=== PATIENT | female | born 1990 | race Caucasian/White ===

== ENCOUNTER 2016-06-04 19:21 | Emergency (ER) | payer MEDICAID ==
[~2016-06-04] VITALS: Ht 167.6 cm; Wt 113.6 kg
[~2016-06-04 19:21] MED LIST: AMOXICILLIN 50500 MG PO; BIRTH CONTROL PILLS; CEFTIN500 MG PO; CLEOCIN HCL300 MG PO; FERROUS SU325 MG/TAB PO; LORTAB 5/500 501 TAB PO; METHADOSE40 MG PO; MOTRIN 600600 MG/TAB PO; NAPROSYN500 MG PO; NO HOME MEDICATIONS; NORCO 325 MG-51 TAB PO; NORCO 325 MG-7.1 TAB PO; ORTHO TRI-CYCLE1 TAB PO; PERCOCET 325 MG1 TA2 PO; PHENERGAN 25 TA25 MG PO; PRENATAL MVI; PRENATAL VITAMI1 TA5 PO; PRENATAL1 TA3 PO; PROTONIX 40MG T40 MG PO; ROXICODONE 55 MG/TAB PO; TYLENOL 325MG325 MG PO; ZITHROMAX Z PA250 MG PO; ZOFRAN 4MG T4 MG/TAB PO; [UNRECOGNIZED DRUG - REMARK]
[2016-06-04 19:27] VITALS: BP 116/73; TEMP 98.6
[2016-06-04 21:45] VITALS: PULSE 86
== END 2016-06-04 21:48 | disposition home or self-care (01) ==
LOC: COL.ER 19:21
DX: M25.561 Pain in right knee (principal); R22.41 Localized swelling, mass and lump, right lower limb; Z32.01 Encounter for pregnancy test, result positive; W50.1XXA Accidental kick by another person, initial encounter; W19.XXXA Unspecified fall, initial encounter
CPT/HCPCS: J1170; L1830

== ENCOUNTER 2016-09-18 14:38 | Inpatient (IN) | payer MEDICAID ==
[~2016-09-18] VITALS: Ht 165.1 cm; Wt 107.7 kg
[2016-09-18] VITALS (18 sets, daily range): BP systolic 13–1379; BP diastolic 70–773; PULSE 63–78; TEMP 98.2–98.8
[2016-09-18] MEDS ORDERED: PRENATAL 19 CH1 EACH PO (16:12)
[2016-09-18 16:18] LABS: BASO % 0.5 % (0.0-2.0); EOS # 0.1 (0.0-0.7); EOS % 1.7 % (0-4.0); GRAN # 4.9 (1.4-6.5); GRAN % 73.7 % (42.2-75.2); LYMPH # 1.1 (1.2-3.4); LYMPH % 15.8 % (20.0-51.0); MEAN CELL VOLUME 86 fl (80.0-100.0); MEAN CORPUSCULAR HGB CONC 34 g/dl (33.0-37.0); MEAN PLATELET VOLUME 14.3 fl (7.4-10.4); MONO # 0.5 (0.1-0.6); MONO % 7.8 % (1.7-9.3); PLATELET COUNT 123 K/mm3 (130-400); RED BLOOD COUNT 3.85 M/mm3 (4.10-5.30); WHITE BLOOD COUNT 6.7 K/mm3 (4.8-10.8)
[2016-09-18 16:26] LABS: HEMATOCRIT 32.9 % (37.0-47.0); HEMOGLOBIN 11.1 g/dl (12.5-16.0); MEAN CORPUSCULAR HEMOGLOBIN 29 pg (27.0-31.0)
[2016-09-18 16:52] LABS: AMPHETAMINE URINE NEGATIVE; BARBITURATES URINE NEGATIVE; BENZODIAZEPINES URINE POSITIVE; BUPRENORPHINE URINE POSITIVE; METHADONE URINE NEGATIVE; OPIATES URINE NEGATIVE; OXYCODONE URINE NEGATIVE; PHENCYCLIDINE URINE NEGATIVE; PROPOXYPHENE URINE NEGATIVE; THC CANNABINOIDS URINE NEGATIVE
[2016-09-19 02:00] VITALS: BP 122/67; PULSE 68; TEMP 98
[2016-09-19] MEDS ORDERED: IBU600 MG PO (03:53)
[2016-09-19] MEDS ORDERED: PERCOCET 325 MG1 TA3 PO (03:54)
[2016-09-19 07:15] LABS: BASO % 0.3 % (0.0-2.0); EOS # 0.2 (0.0-0.7); EOS % 2.2 % (0-4.0); GRAN # 5.3 (1.4-6.5); GRAN % 72.7 % (42.2-75.2); LYMPH % 14.3 % (20.0-51.0); MEAN CELL VOLUME 87 fl (80.0-100.0); MEAN CORPUSCULAR HGB CONC 33 g/dl (33.0-37.0); MEAN PLATELET VOLUME 13.7 fl (7.4-10.4); MONO # 0.7 (0.1-0.6); MONO % 10.2 % (1.7-9.3); PLATELET COUNT 93 K/mm3 (130-400); REDCELL DISTRIBUTION WIDTH-CV 13.2 % (11.5-14.5); WHITE BLOOD COUNT 7.3 K/mm3 (4.8-10.8)
[2016-09-19 07:18] LABS: HEMATOCRIT 29.7 % (37.0-47.0); HEMOGLOBIN 9.7 g/dl (12.5-16.0); MEAN CORPUSCULAR HEMOGLOBIN 29 pg (27.0-31.0)
[2016-09-19 07:53] VITALS: BP 150/86; PULSE 74; TEMP 98.1
[2016-09-19 15:35] VITALS: BP 129/86; PULSE 62; TEMP 98.2
[2016-09-19 22:30] VITALS: BP 120/73; PULSE 66; TEMP 98.4
[2016-09-20 07:30] VITALS: BP 130/76; PULSE 68; TEMP 98
[2016-09-20 16:48] VITALS: BP 138/82; PULSE 66; TEMP 98
[2016-09-20 20:15] VITALS: BP 144/69; PULSE 54; TEMP 98.4
[2016-09-21 09:45] VITALS: BP 124/79; PULSE 68; TEMP 98.5
== END 2016-09-21 11:45 | disposition home or self-care (01) | DRG 766 ==
LOC: OB 14:38
PROVIDERS: Obstetrics & Gynecology
PROC: 10D00Z1 Extraction of Products of Conception, Low, Open Approach (ICD-10-PCS; principal; 2016-09-18)
DX: O34.211 Maternal care for low transverse scar from previous cesarean delivery (principal); N85.8 Other specified noninflammatory disorders of uterus; O99.333 Smoking (tobacco) complicating pregnancy, third trimester; F17.210 Nicotine dependence, cigarettes, uncomplicated; Z3A.39 39 weeks gestation of pregnancy; Z37.0 Single live birth
CPT/HCPCS: J0690; J1885; J2250; J2270; J2370; J2405; J2590; J7120

== ENCOUNTER 2016-10-12 08:50 | Emergency (ER) | payer MEDICAID ==
[~2016-10-12] VITALS: Ht 167.6 cm; Wt 94.1 kg
[~2016-10-12 08:50] MED LIST changes: +IBU600 MG PO; +PERCOCET 325 MG1 TA3 PO; +PRENATAL 19 CH1 EACH PO
[2016-10-12 08:53] VITALS: BP 150/93; TEMP 99.1
[2016-10-12] MEDS ORDERED: NORCO 325 MG-51 TAB PO (09:14)
[2016-10-12] MEDS ORDERED: CLEOCIN HC150 MG/CAP PO (09:14)
[2016-10-12 09:35] VITALS: PULSE 84
== END 2016-10-12 09:36 | disposition home or self-care (01) ==
LOC: COL.ER 08:50
DX: K02.9 Dental caries, unspecified (principal); K04.7 Periapical abscess without sinus; R68.84 Jaw pain

== ENCOUNTER 2017-05-04 12:36 | Emergency (ER) | payer MEDICAID ==
[~2017-05-04] VITALS: Ht 167.6 cm; Wt 91.4 kg
[~2017-05-04 12:36] MED LIST changes: +CLEOCIN HC150 MG/CAP PO
[2017-05-04] MEDS ORDERED: XANAX .25M0.25 MG/TA PO (12:47)
[2017-05-04] MEDS ORDERED: LAMICTAL 25MG T25 MG PO (12:47)
[2017-05-04 15:05] VITALS: BP 93/69; PULSE 130; TEMP 97.9
== END 2017-05-04 15:06 | disposition left against medical advice (07) ==
LOC: COL.ER 12:36
DX: R10.31 Right lower quadrant pain (principal); F17.210 Nicotine dependence, cigarettes, uncomplicated; Z90.49 Acquired absence of other specified parts of digestive tract; Z98.890 Other specified postprocedural states; Z98.51 Tubal ligation status

== ENCOUNTER 2017-05-05 06:28 | Inpatient (IN) | payer MEDICAID ==
[~2017-05-05] VITALS: Ht 167.6 cm; Wt 88.1 kg
[~2017-05-05 06:28] MED LIST changes: +LAMICTAL 25MG T25 MG PO; +XANAX .25M0.25 MG/TA PO
[2017-05-05 07:32] LABS: COLLECTION METHOD CLEAN CATCH
[2017-05-05 07:41] LABS: MUCOUS Present /lpf; PH 5 (5-8); URINE APPEARANCE Cloudy; URINE BACTERIA Rare /hpf; URINE BILIRUBIN Negative (NEGATIVE); URINE BLOOD 2+ (NEGATIVE); URINE COLOR Yellow; URINE GLUCOSE Negative (NEGATIVE); URINE KETONE Negative (NEGATIVE); URINE LEUKOCYTE ESTERASE 2+ (NEGATIVE); URINE NITRATE Negative (NEGATIVE); URINE PROTEIN(semi-quant) 2+ (NEGATIVE); URINE RBC 20-50 /hpf
[2017-05-05 08:18] LABS: MEAN CELL VOLUME 84 fl (80.0-100.0); MEAN CORPUSCULAR HGB CONC 33 g/dl (33.0-37.0); MEAN PLATELET VOLUME 13.2 fl (7.4-10.4); PLATELET COUNT 113 K/mm3 (130-400); RED BLOOD COUNT 3.47 M/mm3 (4.10-5.30); REDCELL DISTRIBUTION WIDTH-CV 14.2 % (11.5-14.5)
[2017-05-05 08:22] LABS: HEMATOCRIT 29.3 % (37.0-47.0); HEMOGLOBIN 9.6 g/dl (12.5-16.0); MEAN CORPUSCULAR HEMOGLOBIN 28 pg (27.0-31.0)
[2017-05-05 08:34] LABS: ALBUMIN 2.9 gm/dL (3.5-5.0); BILIRUBIN,TOTAL 1.7 mg/dL (0.0-1.0); CALCIUM 7.9 mg/dL (8.4-10.2); POTASSIUM 3.6 mmol/L (3.4-5.0); TOTAL PROTEIN 6.5 gm/dL (6.4-8.2)
[2017-05-05 08:44] LABS: CREATININE, serum 4.79 mg/dL (0.52-1.25)
[2017-05-05 10:06] LABS: BAND 17 % (0-10); LYMPHOCYTE 4 % (20.0-51.0); METAMYELOCYTE 1 % (0-0); NEUTROPHILS 71 % (42.0-75.2)
[2017-05-05 10:07] LABS: DOHLE BODIES PRESENT; PLATELET ESTIMATE DECREASED (NORMAL)
[2017-05-05 10:10] LABS: BURR CELLS 1+
[2017-05-05 11:20] VITALS: BP 93/50; PULSE 110; TEMP 97.6
[2017-05-05 16:34] VITALS: BP 91/55; PULSE 81; TEMP 97.2
[2017-05-05 18:06] LABS: FRACTIONAL EXCRETION OF NA+ 1.7 %
[2017-05-05 19:38] VITALS: BP 109/60; PULSE 114; TEMP 98.5
[2017-05-05 23:14] VITALS: BP 91/46; PULSE 121; TEMP 98.9
[2017-05-06 04:17] VITALS: BP 102/49; PULSE 114; TEMP 98.6
[2017-05-06 07:13] LABS: HEMATOCRIT 25.7 % (37.0-47.0); HEMOGLOBIN 8.4 g/dl (12.5-16.0); MEAN CELL VOLUME 86 fl (80.0-100.0); MEAN CORPUSCULAR HEMOGLOBIN 28 pg (27.0-31.0); MEAN CORPUSCULAR HGB CONC 33 g/dl (33.0-37.0); MEAN PLATELET VOLUME 13.2 fl (7.4-10.4); PLATELET COUNT 103 K/mm3 (130-400); REDCELL DISTRIBUTION WIDTH-CV 14.6 % (11.5-14.5)
[2017-05-06 07:14] LABS: ALBUMIN 2.3 gm/dL (3.5-5.0); BILIRUBIN,TOTAL 1.3 mg/dL (0.0-1.0); CALCIUM 7.5 mg/dL (8.4-10.2); CREATININE, serum 2.96 mg/dL (0.52-1.25); POTASSIUM 3.7 mmol/L (3.4-5.0); TOTAL PROTEIN 5.5 gm/dL (6.4-8.2)
[2017-05-06 08:00] VITALS: BP 98/58; PULSE 104; TEMP 98.5
[2017-05-06 09:25] LABS: BAND 15 % (0-10); EOSINOPHIL 1 % (0-4); LYMPHOCYTE 9 % (20.0-51.0); NEUTROPHILS 73 % (42.0-75.2); PLATELET ESTIMATE DECREASED (NORMAL)
[2017-05-06 09:26] LABS: HYPOCHROMIA 1+
[2017-05-06 09:27] LABS: BURR CELLS 1+
[2017-05-06 10:45] VITALS: BP 101/55; PULSE 99; TEMP 97.7
[2017-05-06 14:33] LABS: IRON,SERUM 17 ug/dL (35-150)
[2017-05-06 14:42] LABS: TOTAL IRON BINDING CAPACITY 260 ug/dL (265-497)
[2017-05-06 15:07] LABS: FERRITIN 169 ng/mL (6-137)
[2017-05-06 15:51] VITALS: BP 110/66; PULSE 105; TEMP 98
[2017-05-06 20:13] VITALS: BP 125/67; PULSE 111; TEMP 98.5
[2017-05-07 00:02] VITALS: BP 133/70; PULSE 108; TEMP 98.6
[2017-05-07 00:09] LABS: FOLATE (FOLIC ACID) 8.3 ng/mL (7.0-31.4)
[2017-05-07 03:37] VITALS: BP 117/59; PULSE 117; TEMP 98.9
[2017-05-07 06:29] LABS: HEMATOCRIT 27.1 % (37.0-47.0); HEMOGLOBIN 8.8 g/dl (12.5-16.0); MEAN CELL VOLUME 87 fl (80.0-100.0); MEAN CORPUSCULAR HEMOGLOBIN 28 pg (27.0-31.0); MEAN CORPUSCULAR HGB CONC 33 g/dl (33.0-37.0); MEAN PLATELET VOLUME 12.6 fl (7.4-10.4); PLATELET COUNT 103 K/mm3 (130-400); RED BLOOD COUNT 3.13 M/mm3 (4.10-5.30)
[2017-05-07 06:58] LABS: ALBUMIN 2.3 gm/dL (3.5-5.0); BILIRUBIN,TOTAL 1.2 mg/dL (0.0-1.0); CALCIUM 8.4 mg/dL (8.4-10.2); CREATININE, serum 1.99 mg/dL (0.52-1.25); POTASSIUM 3.7 mmol/L (3.4-5.0); TOTAL PROTEIN 5.6 gm/dL (6.4-8.2)
[2017-05-07 07:42] LABS: BAND 3 % (0-10); EOSINOPHIL 1 % (0-4); LYMPHOCYTE 5 % (20.0-51.0); METAMYELOCYTE 2 % (0-0); NEUTROPHILS 84 % (42.0-75.2); PLATELET ESTIMATE DECREASED (NORMAL)
[2017-05-07 08:32] VITALS: BP 105/64; PULSE 93; TEMP 98.7
[2017-05-07 10:30] LABS: RETIC # 0.01 M/mm3 (0.02-0.16); RETIC % 0.3 % (0.5-3.52)
[2017-05-07 11:42] VITALS: BP 112/62; PULSE 90; TEMP 98.4
[2017-05-07 15:58] VITALS: BP 120/66; PULSE 84; TEMP 98.4
[2017-05-07 20:05] VITALS: BP 116/71; PULSE 89; TEMP 97.5
[2017-05-08 00:56] VITALS: BP 121/73; PULSE 92; TEMP 98.7
[2017-05-08 05:10] VITALS: BP 122/72; PULSE 100; TEMP 97.4
[2017-05-08 07:38] LABS: MEAN CELL VOLUME 83 fl (80.0-100.0); MEAN CORPUSCULAR HGB CONC 33 g/dl (33.0-37.0); MEAN PLATELET VOLUME 11.3 fl (7.4-10.4); PLATELET COUNT 110 K/mm3 (130-400); RED BLOOD COUNT 2.88 M/mm3 (4.10-5.30); REDCELL DISTRIBUTION WIDTH-CV 14.7 % (11.5-14.5)
[2017-05-08 07:44] LABS: MEAN CORPUSCULAR HEMOGLOBIN 28 pg (27.0-31.0)
[2017-05-08 07:46] LABS: CALCIUM 7.9 mg/dL (8.4-10.2); CREATININE, serum 1.39 mg/dL (0.52-1.25); POTASSIUM 3.5 mmol/L (3.4-5.0)
[2017-05-08] MEDS ORDERED: FOLIC ACID 11 MG/TA1 PO (07:53)
[2017-05-08] MEDS ORDERED: COLACE 100100 MG/CAP PO (07:54)
[2017-05-08 08:13] VITALS: BP 113/67; PULSE 87; TEMP 97.9
[2017-05-08] MEDS ORDERED: OMNICEF 300MG300 MG PO (09:17)
[2017-05-08] MEDS ORDERED: NORCO 325 MG-51 TAB PO (09:18)
[2017-05-08 09:24] LABS: BAND 7 % (0-10); EOSINOPHIL 2 % (0-4); LYMPHOCYTE 17 % (20.0-51.0); NEUTROPHILS 72 % (42.0-75.2); PLATELET ESTIMATE DECREASED (NORMAL)
[2017-05-08] MEDS ORDERED: NORCO 325 MG-7.1 TAB PO (09:30)
[2017-05-08 11:23] VITALS: BP 124/77; PULSE 86; TEMP 98.2
[2017-05-08 15:38] VITALS: BP 124/78; PULSE 89; TEMP 98.5
[2017-05-08 20:20] VITALS: BP 120/70; PULSE 86; TEMP 98.3
[2017-05-09 00:24] VITALS: BP 116/66; PULSE 84; TEMP 98.5
[2017-05-09 04:01] VITALS: BP 110/60; PULSE 89; TEMP 98.1
[2017-05-09 06:23] LABS: MEAN CELL VOLUME 86 fl (80.0-100.0); MEAN CORPUSCULAR HGB CONC 32 g/dl (33.0-37.0); MEAN PLATELET VOLUME 11.5 fl (7.4-10.4); PLATELET COUNT 120 K/mm3 (130-400); RED BLOOD COUNT 2.77 M/mm3 (4.10-5.30); REDCELL DISTRIBUTION WIDTH-CV 14.7 % (11.5-14.5)
[2017-05-09 06:26] LABS: HEMATOCRIT 23.7 % (37.0-47.0); HEMOGLOBIN 7.6 g/dl (12.5-16.0); MEAN CORPUSCULAR HEMOGLOBIN 27 pg (27.0-31.0)
[2017-05-09 06:33] LABS: CALCIUM 7.9 mg/dL (8.4-10.2); CREATININE, serum 1.13 mg/dL (0.52-1.25); POTASSIUM 3.3 mmol/L (3.4-5.0)
[2017-05-09 07:15] LABS: BAND 4 % (0-10); EOSINOPHIL 1 % (0-4); LYMPHOCYTE 20 % (20.0-51.0); METAMYELOCYTE 3 % (0-0); NEUTROPHILS 67 % (42.0-75.2); PLATELET ESTIMATE DECREASED (NORMAL)
[2017-05-09 07:17] LABS: ANISOCYTOSIS 1+; HYPOCHROMIA 1+
[2017-05-09 07:45] VITALS: BP 121/72; PULSE 85; TEMP 98.2
[2017-05-09] MEDS ORDERED: FERROUS SU325 MG/TAB PO (08:42)
[2017-05-09] MEDS ORDERED: ULTRAM 50MG TAB50 MG PO (08:43)
== END 2017-05-09 10:54 | disposition home or self-care (01) | DRG 690 ==
LOC: COL.ER 06:28 → MEDICAL 10:02
PROVIDERS: Emergency Medicine; Family Medicine; Nurse Practitioner Family; Physician Assistant
PROC: 02HV33Z Insertion of Infusion Device into Superior Vena Cava, Percutaneous Approach (ICD-10-PCS; principal; 2017-05-05)
DX: N10 Acute pyelonephritis (principal); E87.1 Hypo-osmolality and hyponatremia; E87.2 Acidosis; I10 Essential (primary) hypertension; F17.210 Nicotine dependence, cigarettes, uncomplicated; D47.3 Essential (hemorrhagic) thrombocythemia; N17.9 Acute kidney failure, unspecified; D50.0 Iron deficiency anemia secondary to blood loss (chronic)
CPT/HCPCS: 99222-AI; 99232-AI; 99239; J0696; J1644; J2270; J2765; J3010; J7030

== ENCOUNTER 2017-12-06 16:13 | Emergency (ER) | payer MEDICAID ==
[~2017-12-06] VITALS: Ht 167.6 cm; Wt 89.5 kg
[~2017-12-06 16:13] MED LIST changes: +COLACE 100100 MG/CAP PO; +FOLIC ACID 11 MG/TA1 PO; +OMNICEF 300MG300 MG PO; +ULTRAM 50MG TAB50 MG PO
[2017-12-06 16:19] VITALS: BP 132/77; TEMP 99.1
[2017-12-06] MEDS ORDERED: NEURONTIN300 MG/CAP PO (16:32)
[2017-12-06 17:45] VITALS: PULSE 59
== END 2017-12-06 17:46 | disposition home or self-care (01) ==
LOC: COL.ER 16:13
DX: H61.22 Impacted cerumen, left ear (principal); Z79.891 Long term (current) use of opiate analgesic

== ENCOUNTER 2018-07-30 16:49 | Emergency (ER) | payer MEDICAID ==
[~2018-07-30] VITALS: Ht 167.6 cm; Wt 104.5 kg
[~2018-07-30 16:49] MED LIST changes: +NEURONTIN300 MG/CAP PO
[2018-07-30 16:53] VITALS: TEMP 98.9
[2018-07-30 17:49] LABS: BASO % 0.7 % (0.0-2.0); EOS # 0.1 (0.0-0.7); EOS % 3.2 % (0-4.0); GRAN # 2.3 (1.4-6.5); GRAN % 53.6 % (42.2-75.2); HEMATOCRIT 38.4 % (37.0-47.0); LYMPH # 1.2 (1.2-3.4); LYMPH % 28.4 % (20.0-51.0); MEAN CELL VOLUME 90 fl (80.0-100.0); MEAN CORPUSCULAR HEMOGLOBIN 30 pg (27.0-31.0); MEAN CORPUSCULAR HGB CONC 34 g/dl (33.0-37.0); MEAN PLATELET VOLUME 13.9 fl (7.4-10.4); MONO # 0.6 (0.1-0.6); MONO % 13.9 % (1.7-9.3); PLATELET COUNT 114 K/mm3 (130-400); RED BLOOD COUNT 4.29 M/mm3 (4.10-5.30); REDCELL DISTRIBUTION WIDTH-CV 12.5 % (11.5-14.5)
[2018-07-30 17:51] LABS: COLLECTION METHOD CLEAN CATCH
[2018-07-30 17:58] LABS: ALBUMIN 3.8 gm/dL (3.5-5.0); BILIRUBIN,TOTAL 0.3 mg/dL (0.0-1.0); CALCIUM 8.9 mg/dL (8.4-10.2); CREATININE, serum 0.78 (0.52-1.25); POTASSIUM 4.1 mmol/L (3.4-5.0); TOTAL PROTEIN 7.1 gm/dL (6.4-8.2)
[2018-07-30] MEDS ORDERED: SUBOXONE 8 MG-21 TAB SL (18:20)
[2018-07-30 18:26] LABS: MUCOUS Present /lpf; PH 5 (5-8); URINE APPEARANCE Hazy; URINE BACTERIA Rare /hpf; URINE BILIRUBIN Negative (NEGATIVE); URINE BLOOD Negative (NEGATIVE); URINE COLOR Yellow; URINE GLUCOSE Negative (NEGATIVE); URINE KETONE Negative (NEGATIVE); URINE LEUKOCYTE ESTERASE Negative (NEGATIVE); URINE NITRATE Negative (NEGATIVE); URINE PROTEIN(semi-quant) Negative (NEGATIVE); URINE UROBILINOGEN >=4.0 mg/dL (NEGATIVE)
[2018-07-30] MEDS ORDERED: CIPRO 500MG TA500 MG PO (19:09)
[2018-07-30 19:33] VITALS: BP 107/75; PULSE 71
== END 2018-07-30 19:36 | disposition home or self-care (01) ==
LOC: COL.ER 16:49
PROVIDERS: Emergency Medicine
DX: N30.90 Cystitis, unspecified without hematuria (principal); F17.210 Nicotine dependence, cigarettes, uncomplicated; Z98.51 Tubal ligation status; Z98.890 Other specified postprocedural states; Z90.49 Acquired absence of other specified parts of digestive tract

== ENCOUNTER 2018-08-05 21:24 | Emergency (ER) | payer MEDICAID ==
[~2018-08-05] VITALS: Ht 167.6 cm; Wt 104.5 kg
[~2018-08-05 21:24] MED LIST changes: +CIPRO 500MG TA500 MG PO; +SUBOXONE 8 MG-21 TAB SL
[2018-08-05 21:29] VITALS: BP 134/65; TEMP 98.1
[2018-08-05] MEDS ORDERED: VALTREX1 GM PO (21:45)
[2018-08-05 22:41] VITALS: PULSE 75
== END 2018-08-05 22:43 | disposition home or self-care (01) ==
LOC: COL.ER 21:24
DX: B02.9 Zoster without complications (principal)

== ENCOUNTER 2018-12-17 18:00 | Emergency (ER) | payer MEDICAID ==
[~2018-12-17] VITALS: Ht 167.6 cm; Wt 103.2 kg
[~2018-12-17 18:00] MED LIST changes: +VALTREX1 GM PO
[2018-12-17 18:04] VITALS: TEMP 99.4
[2018-12-17 21:16] VITALS: BP 138/86; PULSE 79
== END 2018-12-17 21:35 | disposition home or self-care (01) ==
LOC: COL.ER 18:00
DX: S86.811A Strain of other muscle(s) and tendon(s) at lower leg level, right leg, initial encounter (principal); F41.9 Anxiety disorder, unspecified; F17.210 Nicotine dependence, cigarettes, uncomplicated; Z88.0 Allergy status to penicillin; Z88.1 Allergy status to other antibiotic agents; X50.1XXA Overexertion from prolonged static or awkward postures, initial encounter
CPT/HCPCS: L1846

== ENCOUNTER 2021-06-05 08:37 | Emergency (ER) | payer MEDICAID ==
[~2021-06-05] VITALS: Ht 165.1 cm; Wt 105.0 kg
[2021-06-05 08:43] VITALS: BP 141/74; TEMP 98.4
[2021-06-05 08:50] LABS: COLLECTION METHOD CLEAN CATCH
[2021-06-05 08:56] LABS: PH 5 (5-8); URINE APPEARANCE Hazy (CLEAR/HAZY); URINE BACTERIA Rare /hpf (NONE SEEN); URINE BILIRUBIN Negative (NEGATIVE); URINE BLOOD 1+ (NEGATIVE); URINE COLOR Yellow (YELLOW); URINE GLUCOSE Negative (NEGATIVE); URINE KETONE Negative (NEGATIVE); URINE LEUKOCYTE ESTERASE Trace (NEGATIVE); URINE NITRATE Negative (NEGATIVE); URINE PROTEIN(semi-quant) Negative (NEGATIVE); URINE RBC 0-2 /hpf (0-2); URINE UROBILINOGEN Negative (NEGATIVE)
[2021-06-05 09:15] LABS: BASO # 0.1 K/mm3 (0.0-0.2); EOS # 0.1 K/mm3 (0.0-0.7); EOS % 1.9 % (0.0-4.0); GRAN # 3.5 K/mm3 (1.4-6.5); HEMATOCRIT 38.5 % (37.0-47.0); LYMPH # 1.2 K/mm3 (1.2-3.4); LYMPH % 22.9 % (20.0-51.0); MEAN CELL VOLUME 90 fl (80.0-100.0); MEAN CORPUSCULAR HEMOGLOBIN 30 pg (27-31); MEAN CORPUSCULAR HGB CONC 34 g/dl (33.0-37.0); MEAN PLATELET VOLUME 12.6 fl (7.4-10.4); MONO # 0.4 K/mm3 (0.1-0.6); PLATELET COUNT 172 K/mm3 (130-400); RED BLOOD COUNT 4.29 M/mm3 (4.10-5.30); REDCELL DISTRIBUTION WIDTH-CV 12.9 % (11.5-14.5)
[2021-06-05 09:32] LABS: ALBUMIN 3.7 gm/dL (3.5-5.0); BILIRUBIN,TOTAL 0.3 mg/dL (0.2-1.2); CALCIUM 9.1 mg/dL (8.4-10.2); CREATININE, serum 0.84 mg/dL (0.57-1.11); TOTAL PROTEIN 7.6 gm/dL (6.2-8.1)
[2021-06-05] MEDS ORDERED: BACTRIM DS 8001 TAB PO (10:42)
[2021-06-05 11:07] VITALS: PULSE 65
== END 2021-06-05 11:07 | disposition home or self-care (01) ==
LOC: COL.ER 08:37
PROVIDERS: Emergency Medicine
DX: N12 Tubulo-interstitial nephritis, not specified as acute or chronic (principal); F17.200 Nicotine dependence, unspecified, uncomplicated; Z90.49 Acquired absence of other specified parts of digestive tract; Z88.0 Allergy status to penicillin; Z88.1 Allergy status to other antibiotic agents; Z91.040 Latex allergy status; Z32.02 Encounter for pregnancy test, result negative; Z79.891 Long term (current) use of opiate analgesic; Z79.1 Long term (current) use of non-steroidal anti-inflammatories (NSAID)
CPT/HCPCS: J1885; J7120

== ENCOUNTER 2021-07-07 21:58 | Emergency (ER) | payer MEDICAID ==
[~2021-07-07] VITALS: Ht 165.1 cm; Wt 103.2 kg
[~2021-07-07 21:58] MED LIST changes: +BACTRIM DS 8001 TAB PO
[2021-07-07 23:53] VITALS: BP 137/98; PULSE 100
== END 2021-07-07 23:53 | disposition home or self-care (01) ==
LOC: COL.ER 21:58
DX: F41.9 Anxiety disorder, unspecified (principal); G47.00 Insomnia, unspecified; Z91.040 Latex allergy status

== ENCOUNTER 2021-07-11 15:58 | Emergency (ER) | payer MEDICAID ==
[~2021-07-11] VITALS: Ht 165.1 cm; Wt 103.2 kg
[2021-07-11 17:17] VITALS: BP 124/80; PULSE 78; TEMP 98.7
== END 2021-07-11 17:17 | disposition home or self-care (01) ==
LOC: COL.ER 15:58
DX: S93.402A Sprain of unspecified ligament of left ankle, initial encounter (principal); F17.290 Nicotine dependence, other tobacco product, uncomplicated; Z91.040 Latex allergy status; X50.1XXA Overexertion from prolonged static or awkward postures, initial encounter; Y93.39 Activity, other involving climbing, rappelling and jumping off

== ENCOUNTER 2021-09-17 13:45 | Emergency (ER) | payer MEDICAID ==
[~2021-09-17] VITALS: Ht 167.6 cm; Wt 104.5 kg
[2021-09-17] MEDS ORDERED: BACTRIM DS 8001 TAB PO (15:22)
[2021-09-17 15:34] VITALS: BP 116/77; PULSE 64; TEMP 98.3
== END 2021-09-17 15:35 | disposition home or self-care (01) ==
LOC: COL.ER 13:45
DX: S40.862A Insect bite (nonvenomous) of left upper arm, initial encounter (principal); F17.210 Nicotine dependence, cigarettes, uncomplicated; Z91.040 Latex allergy status; Z88.0 Allergy status to penicillin; Z28.310 Unvaccinated for COVID-19; W57.XXXA Bitten or stung by nonvenomous insect and other nonvenomous arthropods, initial encounter